=== PATIENT | male | born 1965 | race Caucasian/White ===

== ENCOUNTER → 2018-02-19 | Outpatient (CLI) | payer OTHER ==
[~2018-02-19] MED LIST: GADOBENATE DIMEGLUMINE 1 ML IV ONE; SODIUM CHLORIDE 0.9% 50ML 50 ML ONE
--- NOTE | 2018-02-19 13:13 | Diagnostic Imaging Report ---
History: Benign neoplasm of the pituitary gland. Follow-up Comparison studies: None Technique: Pre-and post coronal and sagittal T1. Coronal T2. Axial DWI through the brain. Dynamic postcontrast coronal through the sella Intravenous contrast: 20 cc of MultiHance Findings: Sella: Normal in size and configuration. Pituitary gland: Enhancing tissues seen in the left aspect of the sella measuring 1.3 x 1.5 x 1.7cm (SI-[id number]) with extension to the ipsilateral cavernous sinus. Intrinsic T1 hyperintensity seen at the left floor of the sella inferior to the previously described enhancing soft tissues measuring 0.9 cm, no significant blooming on T2-weighted images, likely related to proteinaceous material. Pituitary stalk: Normal in size and deviated towards the right. Optic chiasm: Well visualized and unremarkable. Cavernous sinuses: Involvement of the superior aspect of the left cavernous sinus abutting the ipsilateral internal carotid artery, 50% of the circumference Internal carotid arteries: Normal flow void appearance. Sphenoid sinuses: Mild mucosal thickening at the left sphenoid sinus floor Scattered small FLAIR hyperintensities of the periventricular and deep white matter, most commonly seen with mild chronic microvascular ischemic changes. IMPRESSION: 1. Enhancing lesion at the left aspect of the pituitary gland with solid and cystic component with extension to the ipsilateral cavernous sinus as described above, most consistent with pituitary adenoma. 2. Mild chronic microvascular ischemic changes of the white matter Signed by: DR Anton Shaw M.D. on 02/19/2018 1:09 PM
== END ==
LOC: MRI 09:17
PROVIDERS: ATTEND Neurological Surgery
DX: D35.2 Benign neoplasm of pituitary gland (principal)
CPT/HCPCS: 70553